=== PATIENT | male | born 1970 | race Caucasian/White ===

== ENCOUNTER 2016-10-08 15:30 | Emergency (ER) ==
[2016-10-08 15:34] VITALS: BP 140/90; TEMP 97.9; BMI 26.4
[2016-10-08] MEDS ORDERED: LIDOCAINE 1 % AMP 5 ML (SUTURES) SUBCUT STA (15:40)
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
[2016-10-08] MEDS ORDERED: BOOSTRIX IM ONE (17:06)
[2016-10-08] MEDS ORDERED: KEFLEX PO STA (18:01)
== END 2016-10-08 18:23 | disposition home or self-care (01) ==
LOC: ED 15:30
DX: S21.121A Laceration with foreign body of right front wall of thorax without penetration into thoracic cavity, initial encounter (principal); W20.8XXA Other cause of strike by thrown, projected or falling object, initial encounter
CPT/HCPCS: 90471; 99283